=== PATIENT | female | born 1950 | race Hispanic/Latino ===

== ENCOUNTER 2021-12-09 16:55 | Emergency (ER) | payer MEDICARE ==
[~2021-12-09] VITALS: Ht 144.8 cm; Wt 50.8 kg
[~2021-12-09 16:55] MED LIST: ALENDRONATE SOD70 MG PO; FENOFIBRATE145 MG PO; LISINOPRIL2.5 MG PO; PAROXETINE HCL20 MG PO; PREVACID30 MG PO; ULTRAM 50MG50 MG PO; VITAMIN D-32000 UNIT PO
[2021-12-09 17:17] LABS: BASOPHILS # (AUTO) 0.1 (0.0-0.1); BASOPHILS % 0.5 % (0.0-1.0); EOSINOPHILS % 0.4 % (0.0-6.0); HEMATOCRIT 42.9 % (34.2-44.1); LYMPHOCYTES # (AUTO) 1.2 (1.0-3.2); LYMPHOCYTES % 13.1 % (18.0-39.1); MEAN CORPUSCULAR HEMOGLOBIN 27.8 pg (28-32); MEAN CORPUSCULAR HGB CONC 32.6 g/dL (31-35); MEAN CORPUSCULAR VOLUME 85.3 fL (81-99); MONOCYTES # (AUTO) 0.5 (0.2-0.8); MONOCYTES % 4.7 % (4.4-11.3); NEUTROPHILS # (AUTO) 7.7 (2.1-6.9); NEUTROPHILS % 81.1 % (38.7-80.0); PLATELET COUNT 211 x10e3/uL (140-360); RED BLOOD COUNT 5.03 x10e6/uL (3.6-5.1); RED CELL DISTRIBUTION WIDTH 13.9 % (11.7-14.4)
[2021-12-09] MEDS ORDERED: ONDANSETRON HCL INJ 2MG/ML 2ML 2 MG/ML VIAL IV ONE (17:30)
[2021-12-09] MEDS ORDERED: MECLIZINE HCL 12.5 MG TAB PO ONE (17:30)
[2021-12-09 17:39] LABS: ALANINE AMINOTRANSFERASE 21 IU/L (0-55); ALBUMIN/GLOBULIN RATIO 1.1 (0.8-2.0); ALKALINE PHOSPHATASE 86 IU/L (40-150); ANION GAP 18.5 mmol/L (8-16); BLOOD UREA NITROGEN 11 mg/dL (7-26); BUN/CREATININE RATIO 16 (6-25); CALCIUM 9.2 mg/dL (8.4-10.2); CARBON DIOXIDE 22 mmol/L (22-29); CHLORIDE 104 mmol/L (98-107); CREATINE KINASE 113 IU/L (29-168); CREATININE, SERUM 0.68 mg/dL (0.57-1.11); GLUCOSE 133 mg/dL (74-118); POTASSIUM 3.5 mmol/L (3.5-5.1); SODIUM 141 mmol/L (136-145)
== END 2021-12-09 19:16 | disposition home or self-care (01) ==
LOC: ER 17:30
DX: H81.10 Benign paroxysmal vertigo, unspecified ear (principal); I10 Essential (primary) hypertension; F41.9 Anxiety disorder, unspecified; R94.31 Abnormal electrocardiogram [ECG] [EKG]
CPT/HCPCS: 36415; 70450; 80053; 82550; 82553; 84484; 85025; 93005; 99284; J2405; J8597